=== PATIENT | male | born 1955 | race Caucasian/White ===

== ENCOUNTER 2017-02-11 20:42 | Emergency (ER) | payer OTHER ==
[~2017-02-11] VITALS: Ht 172.7 cm; Wt 83.9 kg
[~2017-02-11 20:42] MED LIST: MAXA10TA17 OR; PAMELOR OR; PREV15CA OR
[2017-02-11] MEDS ORDERED: METO50TA2 (21:11)
[2017-02-11] MEDS ORDERED: ASPI81TA85 PO (21:11)
[2017-02-11] MEDS ORDERED: SIMV40TA2 (21:11)
[2017-02-11] MEDS ORDERED: HYDR-3713 (21:11)
[2017-02-11] MEDS ORDERED: LANS30CA (21:11)
[2017-02-11] MEDS ORDERED: METO37.5 PO (21:11)
[2017-02-11] MEDS ORDERED: TOPI50TA4 (21:11)
[2017-02-12] MEDS: ASPIRIN 325 MG TAB PO ONE (00:45)
[2017-02-12] MEDS: ACETAMINOPHEN 325 MG TAB PO ONE (00:45)
[2017-02-12 00:55] VITALS: BP 136/76
[2017-02-12 01:05] LABS: BASO % 0.4 % (0.0-1.0); EOS # 0.1 K/mm3 (0.0-0.50); EOS % 0.8 % (0.0-3.0); LARGE UNSTAINED CELL # 0.2 K/mm3 (0.0-0.4); LARGE UNSTAINED CELL % 1.9 % (0.0-4.0); LYMPH # 0.8 K/mm3 (1.5-4.5); MEAN CORPUSCULAR HEMOGLOBIN 28.3 pg (27.0-33.0); MEAN CORPUSCULAR HGB CONC 33.3 g/dl (32.0-36.5); MEAN CORPUSCULAR VOLUME 84.9 fl (80.0-96.0); MONO # 0.4 K/mm3 (0.0-0.8); MONO % 3.8 % (0.0-5.0); NEUTROPHILS # 8.1 K/mm3 (1.8-7.7); NEUTROPHILS % 85.1 % (36.0-66.0); PLATELET COUNT, AUTOMATED 209 k/mm3 (150-450); RED CELL DISTRIBUTION WIDTH 13.2 % (11.5-14.5); WHITE BLOOD COUNT 9.5 K/mm3 (4.0-10.0)
[2017-02-12] MEDS ORDERED: ZITHTAB PO (01:28)
[2017-02-12] MEDS ORDERED: TYLE325C PO (01:29)
[2017-02-12] MEDS ORDERED: AZITHROMYCIN 250 MG TAB PO ONE (01:30)
--- NOTE | 2017-02-12 09:00 | REP ---
Chest x-ray: Two views. History: Fever. Comparison study June 04, 2015. Findings: The lungs are well inflated and clear. Pleural angles are sharp. Heart size is normal. Pulmonary vasculature is not increased. There are clips in right upper quadrant of the abdomen post cholecystectomy. Impression: No active disease. Signed by Keyshawn Glover MD 02/12/2017 09:39 A
== END 2017-02-12 01:42 | disposition home or self-care (01) ==
LOC: M ED 21:46
DX: J06.9 Acute upper respiratory infection, unspecified (principal)

== ENCOUNTER → 2017-09-12 | Outpatient (CLI) | payer OTHER ==
[~2017-09-12] MED LIST changes: +ASPI81TA85 PO; +HYDR-3713; +LANS30CA; +METO37.5 PO; +METO50TA7; +SIMV40TA2; +TOPI50TA9; +TYLE325C PO; +ZITHTAB PO
--- NOTE | 2017-09-13 01:14 | REP ---
Clinical: Trauma. Technique: Frontal view of the chest with multiple views of the right hemithorax. Findings: Frontal view of the chest demonstrates no acute cardiopulmonary process. Multiple views of the right hemithorax demonstrates no obvious acute rib fracture or pathology. Impression: Normal right rib series Signed by James De Dios MD 09/13/2017 01:06 A
== END ==
LOC: M WUC 18:49
PROVIDERS: ATTEND Physician Assistant
DX: S20.211A Contusion of right front wall of thorax, initial encounter (principal); X58.XXXA Exposure to other specified factors, initial encounter; Y93.9 Activity, unspecified; Y92.9 Unspecified place or not applicable; Y99.8 Other external cause status

== ENCOUNTER 2018-09-12 15:45 | Emergency (ER) | payer OTHER | END 2018-09-12 16:50 | disposition home or self-care (01) | LOC: M ED 15:45 | DX: S63.501A Unspecified sprain of right wrist, initial encounter (principal); X50.3XXA Overexertion from repetitive movements, initial encounter; Y92.89 Other specified places as the place of occurrence of the external cause; Y99.0 Civilian activity done for income or pay; Z79.899 Other long term (current) drug therapy; Z79.82 Long term (current) use of aspirin | CPT/HCPCS: 73110 ==

== ENCOUNTER → 2020-12-19 | Outpatient (CLI) | payer BC ==
[~2020-12-19] MED LIST changes: -ASPI81TA85 PO; +ASPI81TA86 PO; -SIMV40TA2; +SIMV40TA20
--- NOTE | 2020-12-21 17:19 | REP ---
INDICATION: PAIN COMPARISON: None. TECHNIQUE: Internal rotation, external rotation, and Y view. FINDINGS: Cortical irregularity and spurring at the acromioclavicular joint and along the inferior margin of the acromion process noted along with subtle cortical irregularity of the calcified glenoid rim. The subacromial space is normal. There is no evidence for acute fracture or dislocation. No periarticular calcifications or loose bodies identified. IMPRESSION: Essentially age-related degenerative changes as described above. <Electronically signed by James De Dios > 12/21/20 [id number]
== END ==
LOC: M WUC 12:09
PROVIDERS: ATTEND Physician Assistant Medical
DX: M19.011 Primary osteoarthritis, right shoulder (principal)

== ENCOUNTER → 2021-06-03 | Outpatient (REF) | payer BC ==
[2021-06-03 17:26] LABS: APPEARANCE, URINE CLEAR (CLEAR); BACTERIA, URINE AUTO NEGATIVE (NEGATIVE); BILIRUBIN, URINE AUTO NEGATIVE (NEGATIVE); BLOOD, URINE BLOOD NEGATIVE (NEGATIVE); COLOR, URINE YELLOW (YELLOW); GLUCOSE, URINE (UA) AUTO NEGATIVE (NEGATIVE); KETONE, URINE AUTO NEGATIVE (NEGATIVE); LEUKOCYTE ESTERASE, URINE AUTO TRACE (NEGATIVE); MUCUS, URINE SMALL (NEGATIVE); NITRITE, URINE AUTO NEGATIVE (NEGATIVE); PROTEIN, URINE AUTO NEGATIVE (NEGATIVE); RBC, URINE AUTO 1 /HPF (0-3); SPECIFIC GRAVITY URINE AUTO 1.017 (1.002-1.035); SQUAMOUS EPITHELIAL CELL UR AU 0 /HPF (0-6); WBC, URINE AUTO 8 /HPF (0-3)
== END ==
LOC: M LAB REF 16:37
PROVIDERS: ATTEND Internal Medicine
DX: Z01.810 Encounter for preprocedural cardiovascular examination (principal)

== ENCOUNTER → 2022-06-24 | Outpatient (CLI) | payer BC | LOC: M PLALAB 12:41 | PROVIDERS: ATTEND Psychiatry & Neurology Neurology | DX: R51.9 Headache, unspecified (principal) ==

== ENCOUNTER → 2024-04-17 | Outpatient (CLI) | payer BC ==
[~2024-04-17] MED LIST changes: +TOPI-21; -TOPI50TA9
== END ==
LOC: M WUC 12:37
PROVIDERS: ATTEND Physician Assistant
DX: S80.02XA Contusion of left knee, initial encounter (principal); S50.02XA Contusion of left elbow, initial encounter; S50.12XA Contusion of left forearm, initial encounter; Y93.9 Activity, unspecified; Y92.9 Unspecified place or not applicable